=== PATIENT | female | born 1990 | race Hispanic/Latino ===

== ENCOUNTER 2020-02-19 08:55 | Day surgery (SDC) | payer BC ==
[~2020-02-19] VITALS: Ht 152.4 cm; Wt 72.6 kg
[~2020-02-19 08:55] MED LIST: NEXPLANON68 MG SUB-Q
--- NOTE | 2020-02-19 11:10 | NUR ---
02/19/20 1110 Micah,Tanisha 1101 PT ARRIVED TO PACU ON 10L VIA MASK. VSS. 1104 PT WOKE AND REACHING FOR HER FACE, O2 MASK REMOVED AND PT ENCOURAGED TO DEEP BREATHE. PT TAKES A FEW DEEP BREATHS AND FALLS BACK TO SLEEP. SMALL AMOUNT OF SNORING NOTED.
--- NOTE | 2020-02-19 11:34 | NUR ---
PT ARRIVES TO DS RM 3 FROM PACU DROWSY. PT EASILY AROUSES TO VERBAL STIMULATION AND IS ABLE TO ANSWER COMMANDS APPROPRIATELY. PT DENIES ANY PAIN OR NAUSEA. GLASSES PROVIDED TO PT ON BEDSIDE TABLE. DC CRITERIA EXPLAINED. PT PROVIDED ICED WATER AND CRACKERS. CALL LIGHT WITHIN REACH.
--- NOTE | 2020-02-19 11:42 | NUR ---
PT PROVIDED PAIUTE OF [place] PER REQUEST. ENCOURAGED TO USE CALL LIGHT WITH ANY NEEDS.
[2020-02-19] MEDS ORDERED: NORCO 5-325 TA1 EACH PO (11:58)
--- NOTE | 2020-02-19 12:00 | NUR ---
[id number]: VERBAL REPORT GIVEN TO CONRAD ENGEL RN CARE TRANSFERRED AT THIS TIME.
--- NOTE | 2020-02-19 12:25 | NUR ---
DENIES ANY NEEDS.
--- NOTE | 2020-02-19 12:30 | NUR ---
PATIENT UP TO BATHROOM, STEADY ON FEET. VOIDED 150 ML OF URINE. NO COMPLAINTS OF PAIN. DC'D IV, PLACED PRESSURE DRESSING. CATH INTACT. PATIENT NOW GETTING DRESSED FOR DISCHARGE, PATIENT WILL PUT ASSISTANCE REPRESENTATIVE LIGHT WHEN READY FOR DISCHARGE INSTRUCTION, PROVIDED SURYA MARIANO WITH UPDATE ON CARE.
--- NOTE | 2020-02-19 12:55 | NUR ---
1255: DC CRITERIA MET. DC INSTRUCTIONS GIVEN, NO QUESTIONS ASKED. PT DC'S VIA WC FROM RM 3 TO ANCE WAITING AT FRONT ENTRANCE OF HOSPTIAL TO HOME.
--- NOTE | 2020-02-22 17:50 | PATH ---
[facility] [address] [place], [place] [address] Signed SPECIMEN(S): A LEFT UPPER EXTREMITY SPECIMEN SOURCE: A. LEFT UPPER EXTREMITY CLINICAL HISTORY: Foreign body/Nexplanon left upper extremity. FINAL PATHOLOGIC DIAGNOSIS: Left upper extremity foreign body (Nexplanon): - Foreign body present, as described below (see gross description). GROSS DESCRIPTION: The specimen, labeled "LS," and designated on the requisition "foreign body," is received in formalin and consists of a white-jackson flexible rubber/plastic deborah (4.0 cm in length by 0.2 cm in diameter). The specimen is for gross examination only. AC (under the direct supervision of a pathologist) The Gross Description was prepared using a voice recognition system. The report was reviewed for accuracy; however, sound-alike word errors, addition and/or deletions may occur. If there is any question about this report, please contact Client Services. PERFORMING LABORATORY: The gross examination was performed by [employer] [address] (Nitro Man: Rand Bright MD; CLIA# [id number]). Professional interpretation was performed by [employer] [facility], [address] [address] (CLIA# [id number]). Diagnostician: Marva Doss MD Pathologist Electronically Signed 02/22/2020 Copies: ~ PATIENT NAME: KIRK CARRILLO PATHOLOGY DATE OF : 89 REPORT #: [id number] PHYSICIAN: JAZ QUINTANILLA PCP: MAXIME SIDDIQI REPORT IS CONFIDENTIAL AND NOT TO BE RELEASED WITHOUT AUTHORIZATION
--- NOTE | 2020-02-23 08:35 | OR ---
[facility] [address] [place], [place] [address] Signed DATE OF OPERATION: 02/19/2020 SURGEON: Dulce Nunez MD PREOPERATIVE DIAGNOSIS: Left upper extremity subcutaneous foreign body (Nexplanon). POSTOPERATIVE DIAGNOSIS: Left upper extremity subcutaneous foreign body (Nexplanon). PROCEDURE: Removal of left upper extremity subcutaneous foreign body (Nexplanon). ESTIMATED BLOOD LOSS: None. INDICATIONS: Renae is a 29-year-old female, who had her 2nd Nexplanon implant placed in her left upper extremity. They put it through the same incision on her skin. She had the 1st one removed in the office, but this was a bit deep. They tried to find in the office, but were unable to do so. Consequently, she was asked to see me with respect to the above. In addition in the office, we were confident we could feel the tip of the implant, but we still thought we would be better served to do this over in the operating room with good lighting and fluoroscopy if we needed it. I had explained Renae the idea of the fluoroscopy and so forth. She understands there is risk to the surgery including, but not limited to bleeding, infection, scarring, change in contour of the skin as well as damage to underlying neurovascular structures. She had expressed understanding and wished to proceed. DESCRIPTION OF PROCEDURE: I had met with Renae in our preop area. On this occasion, neither Renae nor myself could feel the tip of the Nexplanon implant. However, she is obviously quite confident it has not migrated out through her skin. We marked the area appropriately. After this, we took Renae into our OR room, placed in the supine position with her arm extended down on the table. We were able to prep and drape her shoulder and arm circumferential all out to the fingertips. She was then draped in the usual sterile fashion. She was given preoperative antibiotics along with subcutaneous heparin. SCDs were utilized. She had been placed under a general LMA anesthesia. We made a short radial incision over that area about 12 mm or so in length. We searched carefully and slowly and bluntly with our hemostats about a cm deep and we were still not able to Electronically Signed By: DULCE NUNEZ MD 02/23/20 0835 PATIENT NAME: RENAE CARRILLO OPERATIVE REPORT DATE OF : [birth year] REPORT #: [id number] PHYSICIAN: DULCE NUNEZ MD PCP: MAXIME SIDDIQI REPORT IS CONFIDENTIAL AND NOT TO BE RELEASED WITHOUT AUTHORIZATION [facility] [address] [place], [place] [address] Signed visualize or palpate the Nexplanon implant. Consequently, we brought our fluoroscopy unit into the room and we could slightly above the area. We had been dissecting through. We dissected just a little bit more and we could see it easily with a pseudocapsule. The pseudocapsule had been opened and we were able to move the implant quite readily. We checked on our Internet to make sure that the entire Nexplanon implant had been removed and we were confident in that. We then injected some local anesthetic just underneath the skin in that area. The wound was irrigated and suctioned out until clear. We closed the dermis with interrupted thrill, subcuticular Monocryl sutures. The skin edges were reapproximated in a running 5-0 fast absorbing plain gut suture. Dry gauze and tape were then applied. Renae was awakened from her anesthesia, extubated in the OR and taken to the recovery room in stable condition. Dulce Nunez MD ALB/MODL /[id number] cc: MD Dulce Simpson MD Copies: DULCE NUNEZ MD ~ Electronically Signed By: DULCE NUNEZ MD 02/23/20 0835 PATIENT NAME: RENAE CARRILLO OPERATIVE REPORT DATE OF : [birth year] REPORT #: [id number] PHYSICIAN: DULCE NUNEZ MD PCP: MAXIME SIDDIQI REPORT IS CONFIDENTIAL AND NOT TO BE RELEASED WITHOUT AUTHORIZATION
== END 2020-02-19 12:55 | disposition home or self-care (01) ==
LOC: DS 08:55 → OPS 08:55
PROVIDERS: Colon & Rectal Surgery
PROC: 0JPV0HZ Removal of Contraceptive Device from Upper Extremity Subcutaneous Tissue and Fascia, Open Approach (ICD-10-PCS; principal; 2020-02-19 10:45)
DX: Z45.89 Encounter for adjustment and management of other implanted devices (principal); E66.9 Obesity, unspecified; Z68.31 Body mass index [BMI] 31.0-31.9, adult
CPT/HCPCS: 00400; 76000; J0690; J1100; J1644; J1885; J2250; J2405; J2704; J2765; J3010; J7121

== ENCOUNTER 2024-01-10 09:05 | Inpatient (IN) | payer BC ==
[~2024-01-10] VITALS: Ht 152.4 cm; Wt 79.4 kg
[~2024-01-10 09:05] MED LIST changes: +NORCO 5-325 TA1 EACH PO
[2024-01-10 11:01] VITALS: BP 116/78
[2024-01-10] MEDS ORDERED: MAGNESIUM HYDROXIDE/AL HYDROX 30 ML CUP PO PRN (11:15)
[2024-01-10] MEDS ORDERED: CALCIUM CARBONATE 500 MG CHEW PO PRN (11:15)
[2024-01-10 11:20] LABS: HEMATOCRIT 37.8 % (35.0-50.0); HEMOGLOBIN 12.8 g/dL (12.0-18.0); MCH 29.9 (27-36); MCHC 33.8 g/dl (30-36); MCV 88.4 fl (81-99); RBC 4.28 M/ul (4.3-5.7); RDW 13.3 (10.5-15.0)
[2024-01-10] MEDS ORDERED: OXYTOCIN/DEXTROSE 5% 20 UNITS/100 ML BAG IV SCH (11:35)
[2024-01-10 11:41] LABS: AMPHETAMINES, URINE NEGATIVE (NEGATIVE); BARBITURATES, URINE NEGATIVE (NEGATIVE); BENZODIAZEPINE, URINE NEGATIVE (NEGATIVE); BUPRENORPHINE, URINE NEGATIVE (NEGATIVE); CANNABINOID, URINE NEGATIVE (NEGATIVE); COCAINE, URINE NEGATIVE (NEGATIVE); ECSTASY, URINE NEGATIVE (NEGATIVE); FENTANYL, URINE NEGATIVE (NEGATIVE); METHADONE, URINE NEGATIVE (NEGATIVE); OPIATES, URINE NEGATIVE (NEGATIVE); OXYCODONE, URINE NEGATIVE (NEGATIVE); PHENCYCLIDINE, URINE NEGATIVE (NEGATIVE)
[2024-01-10 11:47] LABS: ABO O; RH POSITIVE
[2024-01-10 11:48] LABS: ANTIBODY SCREEN NEGATIVE
[2024-01-10] MEDS ORDERED: OXYTOCIN/0.9 % SODIUM CHLORIDE 500 ML IV SCH (18:15)
--- NOTE | 2024-01-10 18:15 | PR ---
[facility] [address] [facility] [place], [place] [address] Signed Progress Notes IP Datetime Report Generated by CPN: 01/10/2024 18:15 PROGRESS NOTES: [id number] Impression: Reassuring Heart Rate Procedures: Sterile Vag Exam Plan: Augmentation VITAL SIGNS: [id number] Vital Signs: Reviewed; Within Normal Limits EXAM: [id number] Dilatation: 6.0 Effacement: 80 Station: -2 Contractions: q 1 to 7 min MEMBRANES: [id number] Amniotic Fluid Color: Clear Comments: Very uncomfortable w/ back pain but contraction pattern not adequate and slow progress. I feel augmentation is needed at this time as well as position changes and close observation of status. FETUS A: [id number] FHR Baseline: 145 Variability: Moderate 6-25bpm Accelerations: 15X15 Decelerations: Late FHR Category: Category II Presentation: Vertex Comments on Fetus A: No evidence of metabolic acidosis FETUS B: [id number] Signing Physician: Lyssa Frank MD Copies: ~ *Electronically Signed* 01/10/24 1815 LYSAS FRANK MD PATIENT NAME: KIRK CARRILLO PROGRESS NOTE DATE OF : [birth year] PHYSICIAN: LYSSA FRANK MD RPT #: [id number] REPORT IS CONFIDENTIAL AND NOT TO BE RELEASED WITHOUT AUTHORIZATION
--- NOTE | 2024-01-10 20:04 | PR ---
[facility] [address] [facility] [place], [place] [address] Signed Progress Notes IP Datetime Report Generated by MODESTA: 01/10/2024 20:05 PROGRESS NOTES: [id number] Impression: Normal Progression of Labor Procedures: Sterile Vag Exam Plan: Continue Present Management VITAL SIGNS: [id number] Vital Signs: Reviewed; Within Normal Limits EXAM: [id number] Dilatation: 9.0 Effacement: 80 Station: -2 Contractions: q 1 to 3 min MEMBRANES: [id number] Amniotic Fluid Color: Clear Comments: Good progress with dilation though baby still higher than expected. Will continue position changes. FETUS A: [id number] FHR Baseline: 145 Variability: Moderate 6-25bpm Accelerations: 15X15 Decelerations: Late FHR Category: Category II Presentation: Vertex Comments on Fetus A: No evidence of metabolic acidosis FETUS B: [id number] Signing Physician: Lyssa Frank MD Copies: ~ *Electronically Signed* 01/10/242004 LYSSA FRANK MD PATIENT NAME: KIRK CARRILLO PROGRESS NOTE DATE OF : [birth year] PHYSICIAN: LYSSA FRANK MD RPT #: [id number] REPORT IS CONFIDENTIAL AND NOT TO BE RELEASED WITHOUT AUTHORIZATION
--- NOTE | 2024-01-10 20:47 | PR ---
[facility] [address] [facility] [place], [place] [address] Signed Progress Notes IP Datetime Report Generated by MODESTA: 01/10/2024 20:47 PROGRESS NOTES: [id number] Impression: Normal Progression of Labor Procedures: Sterile Vag Exam Plan: Continue Present Management VITAL SIGNS: [id number] Vital Signs: Reviewed; Within Normal Limits EXAM: [id number] Dilatation: 8.0 Effacement: 80 Station: -2 Contractions: q 1 to 3 min MEMBRANES: [id number] Amniotic Fluid Color: Clear Comments: Good descent. Will continue. FETUS A: [id number] FHR Baseline: 145 Variability: Moderate 6-25bpm Accelerations: 15X15 Decelerations: Early; Variable FHR Category: Category II Presentation: Vertex Comments on Fetus A: No evidence of metabolic acidosis FETUS B: [id number] Signing Physician: Lyssa Frank MD Copies: ~ *Electronically Signed* 01/10/242046 LYSSA FRANK MD PATIENT NAME: KIRK CARRILLO PROGRESS NOTE DATE OF : [birth year] PHYSICIAN: LYSSA FRANK MD RPT #: [id number] REPORT IS CONFIDENTIAL AND NOT TO BE RELEASED WITHOUT AUTHORIZATION
--- NOTE | 2024-01-10 21:35 | PR ---
[facility] [address] [facility] [place], [place] [address] Signed Progress Notes IP Datetime Report Generated by MODESTA: 01/10/2024 21:35 PROGRESS NOTES: [id number] Impression: Normal Progression of Labor Procedures: Sterile Vag Exam Plan: Continue Present Management VITAL SIGNS: [id number] Vital Signs: Reviewed; Within Normal Limits EXAM: [id number] Dilatation: 9.0 Effacement: 80 Station: -2 Contractions: q 1 to 4 min MEMBRANES: [id number] Amniotic Fluid Color: Clear Comments: Progressing with some descent but still some cervix which is not reducible. Will continue. status overall reassuring but will continue position changes and close observation. FETUS A: [id number] FHR Baseline: 145 Variability: Moderate 6-25bpm Accelerations: 15X15 Decelerations: Late; Variable FHR Category: Category II Presentation: Vertex Comments on Fetus A: No evidence of metabolic acidosis FETUS B: [id number] Signing Physician: Lyssa Frank MD Copies: ~ *Electronically Signed* 01/10/24 2135 LYSSA FRANK MD PATIENT NAME: LORENAKIRK PROGRESS NOTE DATE OF : [birth year] PHYSICIAN: LYSSA FRANK MD RPT #: [id number] REPORT IS CONFIDENTIAL AND NOT TO BE RELEASED WITHOUT AUTHORIZATION
--- NOTE | 2024-01-10 22:00 | PR ---
[facility] [address] [facility] [place] [address] Signed Progress Notes IP Datetime Report Generated by MODESTA: 01/10/2024 22:01 PROGRESS NOTES: [id number] Impression: Reassuring Heart Rate Procedures: Sterile Vag Exam Plan: Continue Present Management VITAL SIGNS: [id number] Vital Signs: Reviewed; Within Normal Limits EXAM: [id number] Dilatation: 9.0 Effacement: 80 Station: -2 Contractions: q 1 to 3 min MEMBRANES: [id number] Amniotic Fluid Color: Clear Comments: status reassuring but will continue to closely observe. No further cervical change, however. Will continue position changes. FETUS A: [id number] FHR Baseline: 145 Variability: Moderate 6-25bpm Accelerations: 15X15 Decelerations: Late FHR Category: Category II Presentation: Vertex Comments on Fetus A: No evidence of metabolic acidosis FETUS B: [id number] Signing Physician: Lyssa Frank MD Copies: ~ *Electronically Signed* 01/10/242200 LYSSA FRANK MD PATIENT NAME: KIRK CARRILLO PROGRESS NOTE DATE OF : [birth year] PHYSICIAN: LYSSA FRANK MD RPT #: [id number] REPORT IS CONFIDENTIAL AND NOT TO BE RELEASED WITHOUT AUTHORIZATION
[2024-01-11] MEDS ORDERED: BENZOCAINE 60 ML AEROSOL TOP PRN (02:00)
[2024-01-11] MEDS ORDERED: LIDOCAINE 2% VISCOUS 6 ML SYR TOP ONE ×2 (02:00)
[2024-01-11] MEDS ORDERED: IBUPROFEN 600 MG TAB PO PRN (02:00)
[2024-01-11] MEDS ORDERED: OXYTOCIN/0.9 % SODIUM CHLORIDE 500 ML IV SCH (02:00)
[2024-01-11] MEDS ORDERED: MAGNESIUM HYDROXIDE 30 ML UDC PO PRN (02:00)
[2024-01-11] MEDS ORDERED: MAGNESIUM HYDROXIDE/AL HYDROX 30 ML CUP PO PRN (02:00)
[2024-01-11] MEDS ORDERED: ACETAMINOPHEN 325 MG TAB PO PRN (02:00)
[2024-01-11] MEDS ORDERED: HYDROCODONE/ACETA 5/325 TAB PO PRN (02:00)
[2024-01-11] MEDS ORDERED: CALCIUM CARBONATE 500 MG CHEW PO PRN (02:00)
[2024-01-11] MEDS ORDERED: HYDROCORTISONE ACETATE 25 MG SUPP PR PRN (02:00)
[2024-01-11] MEDS ORDERED: WITCH HAZEL/GLYCERIN 1 EA PAD TOP PRN (02:00)
[2024-01-11] MEDS ORDERED: OXYTOCIN 30 UNITS in LACTATED RINGER'S 1,000 ML IV SCH (02:15)
--- NOTE | 2024-01-11 08:11 | PR ---
[facility] [address] [facility] [place], [place] [address] Signed PP Progress Notes Datetime Report Generated by MODESTA: 01/11/2024 08:12 SUBJECTIVE: [id number] Pain: Within Normal Limits Vital Signs: [id number] Vital Signs: Reviewed; Within Normal Limits Cardiovascular: Not Done Respiratory: Not Done Abdomen/Uterus: Abnormal Lochia: Normal Vulva/Perineum: Not Done Breasts: Not Done CVA Tenderness: Not Done Extremities: Normal Incision: Not Applicable Progress: Abnormal Exam Comments: Fundus firm, NT @ U-2. IMPRESSION/PLAN/PROCEDURES: [id number] Impression: Normal Progression Plan: Discharge Progress Notes: Doing well but tired. Her baby was transferred to [facility] this am and she does desire discharge to go be with her baby this am. She would like breast feeding tips as well prior to her discharge. Signing Physician: Lyssa Frank MD Copies: ~ *Electronically Signed* 01/11/24811 LYSSA FRANK MD PATIENT NAME: KIRK CARRILLO PROGRESS NOTE DATE OF : [birth year] PHYSICIAN: LYSSA FRANK MD RPT #: [id number] REPORT IS CONFIDENTIAL AND NOT TO BE RELEASED WITHOUT AUTHORIZATION
[2024-01-11] MEDS ORDERED: SENNOSIDES/DOCUSATE 1 EA TAB PO SCH (09:00)
== END 2024-01-11 10:15 | disposition home or self-care (01) | DRG 807 ==
LOC: FBCO 09:05 → FBC 10:05
PROVIDERS: ADMIT Obstetrics & Gynecology; ATTEND Obstetrics & Gynecology
PROC: 10E0XZZ Delivery of Products of Conception, External Approach (ICD-10-PCS; principal; 2024-01-11)
PROC: 0KQM0ZZ Repair Perineum Muscle, Open Approach (ICD-10-PCS; 2024-01-11)
DX: O48.0 Post-term pregnancy (principal); Z37.0 Single live birth; O76 Abnormality in fetal heart rate and rhythm complicating labor and delivery; O70.1 Second degree perineal laceration during delivery; Z3A.40 40 weeks gestation of pregnancy; O77.0 Labor and delivery complicated by meconium in amniotic fluid
CPT/HCPCS: 36415; 59025; 80307; 85027; 86850; 86900; 86901; A9270; G0463; J2590